=== PATIENT | male | born 1985 | race Caucasian/White ===

== ENCOUNTER 2017-04-22 12:11 | Outpatient (CLI) | payer MEDICARE, MEDICAID ==
[~2017-04-22] VITALS: Ht 157.5 cm; Wt 70.3 kg
[~2017-04-22 12:11] MED LIST: ATEN50TA2 PO; CETACRE4 EX; ERYTHROMYCIN TOP; FLON1SPR; NS 1,000 ML IV SCH; PAINTAB PO; PROT1TAB2 PO; TRIC145T22 PO; VESI10TA2 PO; ZYRT10TA2 PO
[2017-04-22] MEDS ORDERED: PROPOFOL 200 MG/20 ML VIAL As Ordered ONE ×2 (15:09→15:16)
--- NOTE | 2017-04-22 15:18 | ROOR ---
Patient Name: Porfirio Aldrich Procedure Date: 04/22/2017 2:58 PM Date of : 1985 Age: 31 Room: [facility] Gender: Male Note Status: Finalized Procedure: Upper GI endoscopy Indications: Heartburn, Chronic cough Providers: Mg MILLARD MD Referring MD: Yudelka Alfonso MD Requesting Provider: Medicines: Monitored Anesthesia Care Complications: No immediate complications. Procedure: Pre-Anesthesia Assessment: - The heart rate, respiratory rate, oxygen saturations, blood pressure, adequacy of pulmonary ventilation, and response to care were monitored throughout the procedure. The Endoscope was introduced through the mouth, and advanced to the second part of duodenum. The upper GI endoscopy was accomplished without difficulty. The patient tolerated the procedure well. Findings: The esophagus was normal. The stomach was normal. The examined duodenum was normal. Impression: - Normal esophagus. - Normal stomach. - Normal examined duodenum. - No specimens collected. Recommendation: - Continue present medications. - Use Protonix (pantoprazole) 40 mg PO BID. Mg Millard MD Mg MILLARD MD 04/22/2017 3:18:08 PM This report has been signed electronically. Number of Addenda: 0 Note Initiated On: 04/22/2017 2:58 PM Estimated Blood Loss: Estimated blood loss: none.
[2017-04-22 15:51] VITALS: BP 117/71
== END 2017-04-22 15:52 | disposition home or self-care (01) ==
LOC: M OPP 12:11
PROVIDERS: ATTEND Internal Medicine Gastroenterology
DX: R12 Heartburn (principal); R05 Cough; K21.9 Gastro-esophageal reflux disease without esophagitis; I10 Essential (primary) hypertension; E78.5 Hyperlipidemia, unspecified; F71 Moderate intellectual disabilities; F41.9 Anxiety disorder, unspecified; Z87.891 Personal history of nicotine dependence; Z88.8 Allergy status to other drugs, medicaments and biological substances; Z79.899 Other long term (current) drug therapy